=== PATIENT | female | born 1960 | race Caucasian/White ===

== ENCOUNTER → 2017-07-01 | Outpatient (CLI) | payer OTHER | LOC: M.RAD 14:57 | DX: J18.9 Pneumonia, unspecified organism (principal) ==

== ENCOUNTER → 2017-07-13 | Outpatient (CLI) | payer OTHER | LOC: M.CT 06-16 09:00 | DX: R19.09 Other intra-abdominal and pelvic swelling, mass and lump (principal) ==

== ENCOUNTER → 2018-01-20 | Outpatient (CLI) | payer OTHER | LOC: M.CT 12:41 | DX: K76.0 Fatty (change of) liver, not elsewhere classified (principal); R19.00 Intra-abdominal and pelvic swelling, mass and lump, unspecified site; Z90.710 Acquired absence of both cervix and uterus ==

== ENCOUNTER 2019-09-27 22:50 | Inpatient (IN) | payer OTHER ==
[~2019-09-27] VITALS: Ht 167.6 cm; Wt 54.4 kg
[2019-09-27 22:52] VITALS: BP 114/68
[2019-09-27 23:23] LABS: ABSOLUTE EOSINOPHILS 0.2 thou/uL (0.0-0.7); ABSOLUTE LYMPHOCYTES 3.4 thou/uL (0.8-5.3); ABSOLUTE MONOCYTES 0.5 thou/uL (0.0-1.2); BASOPHILS 0.5 %; EOSINOPHILS 2.4 %; HEMATOCRIT 37.3 % (37.0-47.0); HEMOGLOBIN 13.3 gm/dL (12.0-15.0); LYMPHOCYTES 36.9 %; MCH 34.7 pg (26.0-34.0); MCHC 35.6 g/dL (28.0-37.0); MCV 97.6 fL (80.0-100.0); MONOCYTES 5.6 %; MPV 7.6 fl. (7.2-11.1); NUCLEATED RBCS 0 /100WBC; PLATELET COUNT* 239 thou/uL (150-400); POLYS 54.6 %; RBC 3.82 mil/uL (4.20-5.00); RDW-CV 12.6 % (10.5-14.5); WBC 9.2 thou/uL (4.0-11.0)
[2019-09-27 23:32] LABS: CALCIUM 7.5 mg/dL (8.5-10.1); CREATININE 0.7 mg/dL (0.6-1.3); POTASSIUM 3.3 mmol/L (3.5-5.1)
[2019-09-27 23:42] LABS: ALBUMIN 3.9 g/dL (3.4-5.0); MAGNESIUM 1.9 mg/dL (1.8-2.4); TOTAL BILIRUBIN 0.3 mg/dL (<0.1-1.0); TOTAL PROTEIN 7.3 g/dL (6.4-8.2)
[2019-09-28] VITALS (16 sets, daily range): BP systolic 117–153; BP diastolic 52–80
--- NOTE | 2019-09-28 02:05 | NUR ---
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 PT AMBULATING IN HALLWAY. PT ASKED WHERE SHE IS GOING AND PT STATES "I'M LEAVING. I'M WALKING HOME". MYSELF AND DOCTOR LAD SPOKE WITH PT IN DEPTH ABOUT RISKS OF LEAVING. PT INFORMED THAT SHE HER ETOH LEVELS WERE TOO HIGH FOR HER TO LEAVE AGAINST MEDICAL ADVICE AT THIS TIME AND THAT SHE NEEDS TO REMAIN TO CONTINUE TO BE EVALUATED. PT STATES "YEAH, I'M DRUNK, BUT I'M WALKING HOME". AGAIN PT EDUCATED ON RISKS OF LEAVING AND NEED TO HAVE ETOH LEVEL LOWER BEFORE REFUSAL CAN BE MADE. PT NOW AGREES TO STAY BUT ONLY IF SHE CAN REMAIN IN THE ED. PT STATES SHE WANTS TO HAVE ETOH LEVELS CHECKED AGAIN TO SEE IF THEY ARE LOW ENOUGH FOR HER TO LEAVE AGAINST MEDICAL ADVICE. PT ESCORTED BACK TO ROOM. PT AGREES TO WEAR OXYGEN AND ACID OPERATOR. PT GIVEN WARM BLANKETS AND LIGHTS DIMMED TO PROMOTE COMFORT. PT DENIES OTHER NEEDS AT THIS TIME. WILL CONTINUE TO MONITOR.
--- NOTE | 2019-09-28 04:56 | NUR ---
PT STILL SITTING UP IN BED. PT CONTINUES TO REFUSE TO WEAR OXYGEN. PT STATES SHE IS READY TO LEAVE. PT IS AWAKE/ALERT, SPEECH CLEAR, SKIN WARM/DRY, RESPIRATIONS EVEN AND UNLABORED. PT STATES "I HAVE THINGS THAT I HAVE TO DO". SURGERY AT THE BEDSIDE TO EVALUATE PT.
--- NOTE | 2019-09-28 06:52 | NUR ---
THIS NURSE RECEIVED REPORT FROM ALEE CAPONE. THIS NURSE TO ASSUME PT CARE AT THIS TIME.
--- NOTE | 2019-09-28 07:08 | NUR ---
This RN witnessed with ALEE aPiz pt verbally consenting to having chest tube placed.
--- NOTE | 2019-09-28 07:30 | NUR ---
CALL LIGHT ON AT 0655. NURSE IN ROOM TALKING TO PT. PT STATES "I NEED TO GO HOME". NURSE MADE PT AWARE OF RADIOLOGY RESULTS AND NEED FOR CHEST TUBE. PT CONTINUED TO STATE "I NEED TO GO HOME, I NEED TO TAKE CARE OF MY DOG". NURSE REITERATED THE IMPORTANCE OF CHEST TUBE AND RISKS OF LEAVING EMERGENCY DEPARTMENT. PT BEGAN TO CRY AND BECAME SHORT OF BREATH. NON REBREATHER PLACED ON PT AT 15 LITERS, O2 SAT 98%. PT STATED "I GUESS I'LL DO IT". ALEE DELUCA IN ROOM TO WITNESS PT CONSENTING TO CHEST TUBE PLACEMENT. CONSENT SIGNED BY PT AT 0713. PT MOVED TO BIGGER ROOM IN ED AND CHEST TUBE SET UP AT BEDSIDE.
--- NOTE | 2019-09-28 07:53 | NUR ---
DR. PASTOR IN ROOM SETTING UP FOR CHEST TUBE PLACEMENT. THIS NURSE AT BEDSIDE. PT A&O X4 WITH GCS OF 15. STATES VERBAL CONSENT ONCE AGAIN FOR PROCEDURE AND IS AGREEABLE. ALCOHOL RESULTS 97, WAITED ON RESULTS DUE TO DR. PASTOR ORDERS FOR VERSED TO BE USED DURING PROCEDURE AND INCREASED RISK OF SEDATION DUE TO ALCOHOL. DR. PASTOR MADE AWARE OF RESULTS. TO BEGIN CHEST TUBE PLACEMENT.
--- NOTE | 2019-09-28 08:15 | NUR ---
CHEST TUBE INSERTED, SECURED IN PLACE WITH SUTURES. 4X4 STER[address] AROUND CHEST TUBE. SURGICAL FOAM TAPE PLACED ON GAUZE TO HOLD IN PLACE. CHEST TUBE ATTACHED TO LOW INTERMITTENT SUCTION. DRAINAGE SYSTEM SITTING UPRIGHT ON FLOOR, BELOW LEVEL OF PT CHEST.
--- NOTE | 2019-09-28 08:26 | NUR ---
PT PLACED SUPINE IN BED WITH LEFT ARM ABOVE HEAD FOR PROCEDURE. THIS NURSE ADMINISTERED 1 MG OF VERSED PER DR. PASTOR VERBAL ORDER AT 0756, WHEN PROCEDURE STARTED. PT STATED SHE DID NOT FEEL SEDATED, A&O X4 WITH [employer]CS OF 15. ANOTHER 1 MG OF VERSED ADMINISTERED PER DR. PASTOR VERBAL ORDERS AT 0758. VITALS AT THIS TIME: 150/75, HR 67, O2 SAT 100% ON NON REBREATHER, AND RR 10. PT CRYING AND GRUNTING DURING INSERTION OF CHEST TUBE, MOVING EXTREMITIES IN BED; ANOTHER 2 MG OF VERSED ADMINISTERED BY THIS NURSE PER DR. PASTOR VERBAL ORDERS AT 0800. PT CONTINUED TO MOVE AROUND IN BED, 1 MG OF VERSED ADMINISTERED AGAIN PER DR. PASTOR AT 0803 AND AN ADDITIONALLY 50 MCG OF FENTANYL AT 0805. RADIOLOGY CALLED FOR CHEST XRAY CONFIRMATION OF PLACEMENT. XRAY AT BEDSIDE AT 0819. VITALS AT 0820: 167/99, HR 75, RR 21, AND 100% ON NON REBREATHER. DR. PASTOR CONFIRMED PLACEMENT OF CHEST TUBE AT 0824. PT CURRENTLY IN BED, HOB SEMI FOWLERS, EYES CLOSED, RESPIRATIONS EVEN AND UNLABORED.
--- NOTE | 2019-09-28 08:41 | NUR ---
PT FRIEND, JEFF, CALLED. PT STATED THIS NURSE COULD GIVE JEFF INFORMATION REGARDING PT STATUS. THIS NURSE UPDATED JEFF ON PT STATUS, JEFF MADE AWARE OF HOSPITAL POLICY OF NO VISITORS. JEFF STATED UNDERSTANDING.
--- NOTE | 2019-09-28 09:00 | NUR ---
REPORT GIVEN TO ALEE MUÑIZ WHO IS TO ASSUME PT CARE INPATIENT NURSE.
--- NOTE | 2019-09-28 09:58 | EKG ---
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
[2019-09-28 10:43] LABS: APTT 26.4 Seconds (25.0-31.3); PROTIME 10.1 Seconds (9.20-11.50)
[2019-09-28 15:12] LABS: HEMOGLOBIN 12.7 gm/dL (12.0-15.0)
--- NOTE | 2019-09-28 18:31 | NUR ---
PT RECEIVED FROM ER AT 0905, ALERT AND ORIENTED. PT C/O PAIN RATING 10 ON THE CHEST TUBE INSERTION SITE. THE SITE WAS BLEEDING AND A MEDIUM HEMATOMA PRESENT SURGERY NOTIFIED AND HEMATOMA WAS DRAINED, APPROX 250 MLS BLOOD EXCAVATED. PAIN MGMT WITH FENTANYL AND OXY. ATIVAN GIVEN ONCE FOR ANXIETY. NO ANY SIGNS OF ALCOHOL WITHDRAWL. NO NEED FOR CIWA PROTOCOL PER DR CHAPMAN. VSS. HB STABLE. NS WITH MULTIVITAMINS AT 80 MLS/HR. FAMILY UPDATED. TOLERATING DIET. VOIDED ONCE PER BEDPAN. PAINFUL WITH ANY MOVEMENT, REASSURANCE PROVIDED.
[2019-09-29] VITALS (22 sets, daily range): BP systolic 87–147; BP diastolic 33–74
[2019-09-29 03:43] LABS: ABSOLUTE LYMPHOCYTES 2.1 thou/uL (0.8-5.3); ABSOLUTE NEUTROPHILS 10.8 thou/uL (1.6-8.1); BASOPHILS 0.2 %; EOSINOPHILS 0.1 %; HEMATOCRIT 27.8 % (37.0-47.0); LYMPHOCYTES 15.1 %; MCH 33.9 pg (26.0-34.0); MCHC 34.7 g/dL (28.0-37.0); MCV 97.7 fL (80.0-100.0); MONOCYTES 7.5 %; MPV 8.1 fl. (7.2-11.1); NUCLEATED RBCS 0 /100WBC; PLATELET COUNT* 205 thou/uL (150-400); POLYS 77.1 %; RBC 2.85 mil/uL (4.20-5.00); RDW-CV 12.6 % (10.5-14.5)
[2019-09-29 03:44] LABS: HEMOGLOBIN 9.7 gm/dL (12.0-15.0)
[2019-09-29 03:56] LABS: CALCIUM 7.5 mg/dL (8.5-10.1); CREATININE 0.7 mg/dL (0.6-1.3); POTASSIUM 4.3 mmol/L (3.5-5.1)
--- NOTE | 2019-09-29 05:25 | NUR ---
ASSUMED CARE AT 1900H, ON NC AT 2LPM AND TOLERATED. NOTED WITH CONSTANT LEFT CHEST PAIN FROM CHEST TUBE AND INCISSION, PRN MED GIVEN. NO DISTRESS AND INSTRUCTED PT TO USE HER IS AND UNDERTOOD. CHEST TUBE DRESSING SOAKED WITH BLOOD AND SQUIRTING BLOOD FROM THE INCISSION WOUND. INFORMED SURGERY WITH INSTRUCTION TO DRESS SITE TIGHTLY, DRESSING CHANGE 2X. LATEST HGB 9.7 FROM 12.7. VITAL SIGNS STABLE. KEPT PT LESS ANXIOUS AND UDERSTOOD PLAN FOR THE NIGHT. CHEST TUBE DRAINAGE WITH SLIGHT OSCILLATION NOTED. NO ALCOHOL WITHDRAWAL SEEN. CONTINUE MONITORING AND TOWARD GOALS.
--- NOTE | 2019-09-29 09:30 | NUR ---
8816 assumed care of patient. see documented assessment. pt has left chest tube to 20 cm suciotn without tidaling or bubbling. dressing is dry and intact
[2019-09-29 13:49] LABS: HEMATOCRIT 23.5 % (37.0-47.0); HEMOGLOBIN 8.1 gm/dL (12.0-15.0)
--- NOTE | 2019-09-29 18:19 | NUR ---
PATIENT PROGRESSING TOWARDS GOALS. CHEST TUBE SITE HAS REMAINED DRY AND INTACT. CHEST TUBE NOW TO WATER SEAL ONLY. PAIN CONTROL ADEQUATE. PT NOW UP TO BSC WITHOUT ASSIST AND DECLINES SCD'S AND OXYGEN. MONITORING HEMOGLOBIN.
[2019-09-30] VITALS (19 sets, daily range): BP systolic 83–133; BP diastolic 37–61
[2019-09-30 03:34] LABS: ABSOLUTE BASOPHILS 0.1 thou/uL (0.0-0.2); ABSOLUTE EOSINOPHILS 0.3 thou/uL (0.0-0.7); ABSOLUTE LYMPHOCYTES 2.7 thou/uL (0.8-5.3); ABSOLUTE MONOCYTES 1.1 thou/uL (0.0-1.2); ABSOLUTE NEUTROPHILS 6.9 thou/uL (1.6-8.1); BASOPHILS 0.6 %; HEMATOCRIT 20.1 % (37.0-47.0); LYMPHOCYTES 24.6 %; MCH 33.7 pg (26.0-34.0); MCHC 34.3 g/dL (28.0-37.0); MCV 98.2 fL (80.0-100.0); MONOCYTES 9.7 %; MPV 8.3 fl. (7.2-11.1); NUCLEATED RBCS 0 /100WBC; PLATELET COUNT* 151 thou/uL (150-400); POLYS 62.1 %; RBC 2.05 mil/uL (4.20-5.00); RDW-CV 12.4 % (10.5-14.5); WBC 11.1 thou/uL (4.0-11.0)
[2019-09-30 03:50] LABS: ALBUMIN 2.8 g/dL (3.4-5.0); CALCIUM 7.4 mg/dL (8.5-10.1); CREATININE 0.7 mg/dL (0.6-1.3); POTASSIUM 3.8 mmol/L (3.5-5.1); TOTAL BILIRUBIN 0.3 mg/dL (<0.1-1.0); TOTAL PROTEIN 5.6 g/dL (6.4-8.2)
[2019-09-30 04:10] LABS: HEMOGLOBIN 6.9 gm/dL (12.0-15.0)
--- NOTE | 2019-09-30 05:02 | NUR ---
ASSUMED CARE AT 1910H, ON RA AND TOLERATED. NO RESPIRATORY DISTRESS. NO BLEEDING NOTED. MINIMAL OUTPUT FROM THE CHEST TUBE. HGB 6.9, INFORM SURGERY AND ORDERED I UNIT BLOOD BUT PT REFUSED. ACCORDING TO PT SHE'S GETTING WORST AND SORE EVERY WHERE. VITAL SIGNS WERE STABLE. PT TALKED TO THE SURGERY DOCTOR VIA PHONE. PT JUST WONDERING WHERE SHE'S BLEEDING AND WORRIED SHE MIGHT HAVING A INTERNAL BLEEDING.X RAY DONE. PRN MEDS GIVEN. HOT AND COLD COMPRESS DONE ON THE AFFECTED SITE. CONTINUE MONITORING AND TOWARD GOALS.
--- NOTE | 2019-09-30 09:05 | NUR ---
3456 ASSUMED CARE OF PATIENT .PLEASE SEE DOCUMENTED ASSESSMENT. PT NOW AGREES TO TRANSFUSION
--- NOTE | 2019-09-30 12:31 | NUR ---
1130 CHEST TUBE REMOVED BY PHYSICIAN. BLOOD TRANSFUSION IS COMPLETE
[2019-09-30 15:53] LABS: HEMATOCRIT 24.7 % (37.0-47.0); HEMOGLOBIN 8.7 gm/dL (12.0-15.0)
--- NOTE | 2019-09-30 16:34 | NUR ---
PATIENT IS NOW TELE STATUS
--- NOTE | 2019-09-30 17:06 | NUR ---
PATIENT IS PROGRESSING TOWARDS GOALS. BLOOD TRANSFUSION COMPLETED THIS MORNING AND CHEST TUBE HAS BEEN REMOVED. PT HAS BEEN RESTLESS WITH CIWA SCORES CHARTED. PT REMOVED IV. NOW ON SCHEDULED ATIVAN. PATIENT IS TELE STATUS.
[2019-10-01] VITALS: BP 110/57
[2019-10-01 03:44] LABS: ABSOLUTE BASOPHILS 0.1 thou/uL (0.0-0.2); ABSOLUTE EOSINOPHILS 0.4 thou/uL (0.0-0.7); ABSOLUTE LYMPHOCYTES 2.4 thou/uL (0.8-5.3); ABSOLUTE MONOCYTES 0.7 thou/uL (0.0-1.2); ABSOLUTE NEUTROPHILS 4.3 thou/uL (1.6-8.1); BASOPHILS 0.7 %; EOSINOPHILS 4.7 %; HEMATOCRIT 23.1 % (37.0-47.0); HEMOGLOBIN 8.1 gm/dL (12.0-15.0); LYMPHOCYTES 30.5 %; MCH 32.3 pg (26.0-34.0); MCHC 35.2 g/dL (28.0-37.0); MONOCYTES 8.9 %; MPV 8.1 fl. (7.2-11.1); NUCLEATED RBCS 0 /100WBC; PLATELET COUNT* 156 thou/uL (150-400); POLYS 55.2 %; RBC 2.52 mil/uL (4.20-5.00); RDW-CV 17.6 % (10.5-14.5); WBC 7.8 thou/uL (4.0-11.0)
[2019-10-01 03:45] LABS: MCV 91.9 fL (80.0-100.0)
[2019-10-01 03:52] LABS: CALCIUM 8.1 mg/dL (8.5-10.1); CREATININE 0.8 mg/dL (0.6-1.3); POTASSIUM 4.1 mmol/L (3.5-5.1)
--- NOTE | 2019-10-01 05:51 | NUR ---
ASSUMED CARE AT 1910H, ON RA AND TOLERATED. NO RESPIRATORY DISTRESS NOTED. NO BLEEDING ON THE INCISSION SITE OF CHEST TUBE. ACCORDING TO PT, SHE HAD LESS PAIN AFTER CHEST TUBE REMOVAL. PRN MEDS GIVEN. LATEST CIWA-2.CONTINUE MONITORING AND TOWARD GOALS.
[2019-10-01 10:43] VITALS: BP 104/55
[2019-10-01 13:34] VITALS: BP 104/55
[2019-10-01] MEDS ORDERED: VITAMIN B-1100 M2 PO (13:49)
[2019-10-01] MEDS ORDERED: FOLIC ACID1 MG PO (13:49)
[2019-10-01] MEDS ORDERED: MULTI VITAMIN1 EACH PO (13:50)
== END 2019-10-01 14:08 | disposition home or self-care (01) | DRG 199 ==
LOC: M.ERS 22:50 → M.ICU 09-28 08:47 → M.TBA-ER 09-28 08:47 → M.ICU 09-28 09:01
PROVIDERS: Emergency Medicine Emergency Medical Services; Personal Emergency Response Attendant; Surgery; ADMIT Internal Medicine
PROC: 0W980ZZ Drainage of Chest Wall, Open Approach (ICD-10-PCS; principal; 2019-09-28)
PROC: 30233N1 Transfusion of Nonautologous Red Blood Cells into Peripheral Vein, Percutaneous Approach (ICD-10-PCS; 2019-09-30)
DX: S27.0XXA Traumatic pneumothorax, initial encounter (principal); G92 Toxic encephalopathy; S22.42XA Multiple fractures of ribs, left side, initial encounter for closed fracture; D62 Acute posthemorrhagic anemia; F10.231 Alcohol dependence with withdrawal delirium; F12.90 Cannabis use, unspecified, uncomplicated; F41.9 Anxiety disorder, unspecified; S20.212A Contusion of left front wall of thorax, initial encounter; F19.10 Other psychoactive substance abuse, uncomplicated; W17.89XA Other fall from one level to another, initial encounter; Y93.89 Activity, other specified; Y92.89 Other specified places as the place of occurrence of the external cause; Z90.710 Acquired absence of both cervix and uterus; Z82.49 Family history of ischemic heart disease and other diseases of the circulatory system; Y99.8 Other external cause status